=== PATIENT | male | born 1960 | race Caucasian/White ===

== ENCOUNTER → 2018-03-22 | Outpatient (CLI) | payer OTHER ==
--- NOTE | 2018-03-22 13:22 | CPEEG ---
DATE OF STUDY: 03/22/2018 INTERPRETATION: This 4-hour video EEG recording is essentially normal. There were no potentially ep ileptogenic abnormalities present in the awake or sleep recordings. The patient did not have any cli nical events during the video EEG monitoring session. REPORT: This 4-hour video EEG recording contains 10 Hz alpha activity over the posterior head region s. There was no abnormal activation at rest, during photic stimulation, or hyperventilation. The pa kristal became drowsy and fell into sustained sleep during the study. There was no abnormal activation during drowsiness, sleep, or during times of arousal. The patient denied any clinical events during the video EEG monitoring session. Throughout the study, most prominently during drowsiness and sleep, there was prominent myogenic ari fact from eye movements in the frontal leads. /[id number]/MODL
== END ==
LOC: FCPNEURO 07:44
PROVIDERS: ATTEND Psychiatry & Neurology Neurology
DX: R51 Headache (principal)